=== PATIENT | female | born 1950 | race Caucasian/White ===

== ENCOUNTER 2022-08-17 22:55 | Emergency (ER) | payer MEDICARE, OTHER ==
[~2022-08-17] VITALS: Ht 147.3 cm; Wt 81.6 kg
[~2022-08-17 22:55] MED LIST: [UNRECOGNIZED DRUG - REMARK] PO
--- NOTE | 2022-08-17 23:13 | NUR ---
JOANA [id number] FROM HOME FOR C/O DIZZINESS AND NAUSEA X 1 DAY. HYPERTENSIVE AND REPORTED DID NOT TAKE HER BP MED TODAY. PT A/OX3. TOLERATING R/A WELL WITH NO RESP DISTRESS. SAFETY MEASURES IN PLACE.
[2022-08-17] MEDS ORDERED: ONDANSETRON HCL/PF 4 MG/2 ML VIAL ONE (23:51)
[2022-08-18] MEDS ORDERED: IV NS 0.9% 1,000 ML BAG IV ONE
[2022-08-18] MEDS ORDERED: ONDANSETRON HCL/PF - ER 4 MG/2 ML VIAL IV ONE
--- NOTE | 2022-08-18 00:01 | NUR ---
EMT AT PT'S BEDSIDE
[2022-08-18 00:26] LABS: BASOPHILS # (AUTO) 0.1 K/uL (0.0-0.2); BASOPHILS % (AUTO) 0.6 % (0.0-2.0); EOSINOPHILS % (AUTO) 1.4 % (0.0-6.0); HEMATOCRIT 37 % (33-45); HEMOGLOBIN 12.3 g/dL (11.5-14.8); LYMPHOCYTES # (AUTO) 1.5 K/uL (0.8-4.8); LYMPHOCYTES % (AUTO) 15.1 % (20.0-44.0); MEAN CORPUSCULAR HGB CONC 33 g/dl (31.0-36.0); MEAN CORPUSCULAR VOLUME 85 fL (82-100); MONOCYTES # (AUTO) 0.6 K/uL (0.1-1.30); MONOCYTES % (AUTO) 5.9 % (2.0-12.0); NEUTROPHILS # (AUTO) 7.8 K/uL (1.8-8.9); PLATELET COUNT (AUTO) 249 K/uL (150-450); WHITE BLOOD COUNT (AUTO) 10.2 K/uL (4.3-11.0)
[2022-08-18 00:40] LABS: CALCIUM, SERUM 8.9 mg/dL (8.5-10.1); CARBON DIOXIDE 25 mmol/L (21-32); CHLORIDE 104 mmol/L (98-107); CREATININE 0.6 mg/dL (0.6-1.3); GLUCOSE 137 mg/dL (74-106); SODIUM SERUM 138 mmol/L (136-145); UREA NITROGEN, BLOOD 20 mg/dL (7-18)
--- NOTE | 2022-08-18 02:35 | NUR ---
Patient discharged to home in stable condition. Written and verbal after care instructions given. Patient verbalizes understanding of instruction. IV removed. Catheter intact and site benign. Pressure and 4x4 applied to site. No bleeding noted.
[2022-08-18 06:32] VITALS: BP 171/99
== END 2022-08-18 06:32 | disposition home or self-care (01) ==
LOC: ER 22:58
DX: R42 Dizziness and giddiness (principal); R11.0 Nausea; I10 Essential (primary) hypertension; E78.5 Hyperlipidemia, unspecified
CPT/HCPCS: 99285; 71045; 96361; 93005 ×2; 85025; 80048; 36415 ×2; 84484 ×2; 83880; 96374; J7030; J2405

== ENCOUNTER 2023-08-07 11:06 | Inpatient (IN) | payer MEDICARE, OTHER ==
[~2023-08-07] VITALS: Ht 134.6 cm; Wt 72.6 kg
[~2023-08-07 11:06] MED LIST changes: +IBUP-1953 PO
[2023-08-07] MEDS ORDERED: MORPHINE SULFATE INJ 2 MG/ML DISP.SYRIN IV ONE ×2 (11:30→13:00)
[2023-08-07] MEDS ORDERED: MORPHINE SULFATE INJ 2 MG/ML DISP.SYRIN ONE (11:34)
[2023-08-07] MEDS ORDERED: IOHEXOL-300 100 ML VIAL IV ONE (11:47)
[2023-08-07 11:54] LABS: BASOPHILS % (AUTO) 0.3 % (0.0-2.0); EOSINOPHILS # (AUTO) 0.1 K/uL (0.0-0.7); EOSINOPHILS % (AUTO) 0.7 % (0.0-6.0); HEMATOCRIT 36 % (33-45); HEMOGLOBIN 11.8 g/dL (11.5-14.8); LYMPHOCYTES # (AUTO) 1.2 K/uL (0.8-4.8); LYMPHOCYTES % (AUTO) 14.6 % (20.0-44.0); MEAN CORPUSCULAR HEMOGLOBIN 28 PG (26.0-33.0); MEAN CORPUSCULAR HGB CONC 33 g/dl (31.0-36.0); MEAN CORPUSCULAR VOLUME 84 fL (82-100); MONOCYTES # (AUTO) 0.4 K/uL (0.1-1.30); MONOCYTES % (AUTO) 4.6 % (2.0-12.0); NEUTROPHILS # (AUTO) 6.6 K/uL (1.8-8.9); NEUTROPHILS % (AUTO) 79.8 % (43.0-81.0); PLATELET COUNT (AUTO) 222 K/uL (150-450); RED BLOOD CELL COUNT(AUTO) 4.23 MIL/uL (4.0-5.2); RED CELL DISTRIBUTION WIDTH 13.7 % (11.5-15.0); WHITE BLOOD COUNT (AUTO) 8.3 K/uL (4.3-11.0)
[2023-08-07 12:22] LABS: CALCIUM, SERUM 8.9 mg/dL (8.5-10.1); CARBON DIOXIDE 26 mmol/L (21-32); CHLORIDE 103 mmol/L (98-107); CREATININE 0.5 mg/dL (0.6-1.3); GLUCOSE 104 mg/dL (74-106); POTASSIUM 3.8 mmol/L (3.5-5.1); SODIUM SERUM 138 mmol/L (136-145); UREA NITROGEN, BLOOD 13 mg/dL (7-18)
[2023-08-07 12:27] LABS: ALANINE AMINOTRANSFERASE 19 U/L (12-78); ALBUMIN 3.1 g/dL (3.4-5.0); ALKALINE PHOSPHATASE 107 U/L (46-116); ASPARTATE AMINOTRANSFERASE 14 U/L (15-37); BILIRUBIN,DIRECT 0.1 mg/dL (0.0-0.2); BILIRUBIN,TOTAL 0.4 mg/dL (0.2-1.0); LIPASE 49 U/L (16-77); TOTAL PROTEIN, SERUM 6.9 g/dL (6.4-8.2)
[2023-08-07] MEDS ORDERED: MORPHINE SULFATE INJ 4 MG/ML DISP.SYRIN ONE (12:48)
[2023-08-07] MEDS ORDERED: ZOLP5TAB8 PO (13:10)
[2023-08-07] MEDS ORDERED: PARO20TA7 PO (13:10)
[2023-08-07] MEDS ORDERED: CALC500T13 PO (13:10)
[2023-08-07] MEDS ORDERED: ASPI-1420 PO (13:10)
[2023-08-07] MEDS ORDERED: LOSA100T31 PO (13:10)
[2023-08-07] MEDS ORDERED: DONE10TA44 PO (13:10)
[2023-08-07] MEDS ORDERED: AZEL137S7 (13:10)
[2023-08-07] MEDS ORDERED: CLON0.1T PO (13:10)
[2023-08-07] MEDS ORDERED: ROSU10TA29 PO (13:10)
[2023-08-07] MEDS ORDERED: GABA-532 PO (13:10)
[2023-08-07] MEDS ORDERED: HYDR12.55 PO (13:10)
[2023-08-07] MEDS ORDERED: ERGO500093 PO (13:10)
[2023-08-07] MEDS ORDERED: ICOS1CAP PO (13:10)
[2023-08-07 16:00] VITALS: BP 108/70; TEMP 97.9; O2SAT 94
[2023-08-07] MEDS ORDERED: HYDROCODONE/APAP 5/325MG TABLET PO PRN (16:00)
[2023-08-07] MEDS ORDERED: ZOLPIDEM TARTRATE 5 MG TABLET PO PRN (16:00)
[2023-08-07] MEDS ORDERED: ACETAMINOPHEN 325 MG TABLET PO PRN (16:00)
[2023-08-07] MEDS ORDERED: Z GUARD REMEDY 4 OZ OINT TP PRN (16:00)
[2023-08-07] MEDS ORDERED: MAG HYDROX/AL HYDROX/SIMETH 30 ML UDC PO PRN (16:00)
[2023-08-07] MEDS ORDERED: ONDANSETRON HCL/PF 4 MG/2 ML VIAL IVP PRN (16:00)
[2023-08-07] MEDS ORDERED: MORPHINE SULFATE INJ 2 MG/ML DISP.SYRIN IV PRN (16:00)
[2023-08-07] MEDS ORDERED: MAGNESIUM HYDROXIDE 30 ML UDC PO PRN (16:00)
[2023-08-07] MEDS: ENOXAPARIN SODIUM 40 MG/0.4 ML DISP.SYRIN SQ SCH (20:26)
[2023-08-07 20:36] VITALS: BP 125/67; TEMP 98.1; O2SAT 94
[2023-08-08 06:38] LABS: BASOPHILS % (AUTO) 0.2 % (0.0-2.0); EOSINOPHILS % (AUTO) 0.4 % (0.0-6.0); HEMATOCRIT 33 % (33-45); HEMOGLOBIN 11.1 g/dL (11.5-14.8); LYMPHOCYTES # (AUTO) 1.2 K/uL (0.8-4.8); MEAN CORPUSCULAR HEMOGLOBIN 28 PG (26.0-33.0); MEAN CORPUSCULAR HGB CONC 34 g/dl (31.0-36.0); MEAN CORPUSCULAR VOLUME 83 fL (82-100); MONOCYTES # (AUTO) 0.6 K/uL (0.1-1.30); MONOCYTES % (AUTO) 6.8 % (2.0-12.0); NEUTROPHILS # (AUTO) 6.7 K/uL (1.8-8.9); NEUTROPHILS % (AUTO) 78.6 % (43.0-81.0); PLATELET COUNT (AUTO) 209 K/uL (150-450); RED BLOOD CELL COUNT(AUTO) 3.93 MIL/uL (4.0-5.2); WHITE BLOOD COUNT (AUTO) 8.5 K/uL (4.3-11.0)
[2023-08-08 07:01] LABS: CALCIUM, SERUM 8.7 mg/dL (8.5-10.1); CARBON DIOXIDE 25 mmol/L (21-32); CHLORIDE 99 mmol/L (98-107); CREATININE 0.4 mg/dL (0.6-1.3); GLUCOSE 117 mg/dL (74-106); PHOSPHORUS 3.7 mg/dL (2.5-4.9); POTASSIUM 3.4 mmol/L (3.5-5.1); SODIUM SERUM 134 mmol/L (136-145); UREA NITROGEN, BLOOD 9 mg/dL (7-18)
[2023-08-08 07:21] LABS: CHOLESTEROL 185 mg/dL (<200); HDL CHOLESTEROL 77 mg/dL (40-60); LDL 83 mg/dL (0-99); THYROID STIMULATING HORMONE 2.083 uIU/mL (0.358-3.74); TRIGLYCERIDES 80 mg/dL (30-150)
[2023-08-08 07:30] VITALS: BP 136/64; TEMP 97.7; O2SAT 93
[2023-08-08] MEDS: PANTOPRAZOLE 40 MG TABLET.DR PO SCH ×2 (07:30→07:39)
[2023-08-08] MEDS ORDERED: POTASSIUM CHLORIDE 20 MEQ TAB.PRT.SR PO SCH (09:00)
[2023-08-08] MEDS ORDERED: Medication Not On Formulary EA (Icosapent Ethyl (Vascepa) 1 GM) PO SCH (09:00)
[2023-08-08] MEDS: PAROXETINE HCL 20 MG TABLET PO SCH (09:00)
[2023-08-08] MEDS: GABAPENTIN 100 MG CAPSULE PO SCH ×2 (09:00→17:01)
[2023-08-08] MEDS: ASPIRIN EC 81 MG TABLET.DR PO SCH (09:00)
[2023-08-08] MEDS: POTASSIUM CHLORIDE 20 MEQ TAB.PRT.SR PO ONE ×2 (10:30→10:48)
[2023-08-08] MEDS ORDERED: POTASSIUM CHLORIDE 20 MEQ POWDER PACKET PO SCH (12:30)
[2023-08-08 12:39] LABS: INR 1.02 (0.91-1.10); PARTIAL THROMBOPLASTIN TIME 27.6 SEC (24.3-34.3); PROTHROMBIN TIME 10.8 SECS (9.2-11.1)
[2023-08-08] MEDS: HYDROCODONE/APAP 10/325MG TABLET PO PRN ×2 (14:35→18:50)
[2023-08-08 16:00] VITALS: BP 117/86; TEMP 99; O2SAT 92
[2023-08-08] MEDS: ATORVASTATIN 40 MG TABLET PO SCH (17:01)
[2023-08-08 20:00] VITALS: BP 107/48; TEMP 98.6; O2SAT 95
[2023-08-08] MEDS: ENOXAPARIN SODIUM 40 MG/0.4 ML DISP.SYRIN SQ SCH (21:00)
[2023-08-09 05:00] VITALS: BP 130/71; TEMP 98.6; O2SAT 95
[2023-08-09] MEDS ORDERED: BUPIVACAINE 0.25% 75 MG/30 ML VIAL ONE (05:23)
[2023-08-09] MEDS ORDERED: FENTANYL PF 250MCG/5ML AMPUL ONE (05:44)
[2023-08-09] MEDS ORDERED: HYDROMORPHONE INJ 2 MG/ML DISP.SYRIN ONE (05:45)
[2023-08-09] MEDS ORDERED: FAMOTIDINE/PF INJ 20 MG/2 ML VIAL IV ONE (05:46)
[2023-08-09] MEDS ORDERED: SUCCINYLCHOLINE CHLORIDE 20 MG/ML VIAL ONE (05:46)
[2023-08-09] MEDS: PANTOPRAZOLE 40 MG TABLET.DR PO SCH (07:23)
[2023-08-09] MEDS ORDERED: MIDAZOLAM HCL 2 MG/2ML VIAL ONE (08:23)
[2023-08-09] MEDS ORDERED: ACETAMINOPHEN 325 MG TABLET PO PRN (08:30)
[2023-08-09] MEDS ORDERED: HYDROCODONE/APAP 5/325MG TABLET PO PRN (08:30)
[2023-08-09] MEDS ORDERED: SENNOSIDES 8.6 MG TABLET PO PRN ×2 (08:30)
[2023-08-09] MEDS ORDERED: BISACODYL SUPP (10 MG) 10 MG/SUPP.RECT SUPP.RECT RC PRN (08:30)
[2023-08-09 09:00] VITALS: BP 109/65; TEMP 98.1; O2SAT 100
[2023-08-09] MEDS: ASPIRIN EC 81 MG TABLET.DR PO SCH (09:00)
[2023-08-09] MEDS: PAROXETINE HCL 20 MG TABLET PO SCH (09:00)
[2023-08-09] MEDS: GABAPENTIN 100 MG CAPSULE PO SCH ×2 (09:00→17:10)
[2023-08-09] MEDS: LOSARTAN POTASSIUM 50 MG TABLET PO SCH (09:00)
[2023-08-09 11:43] LABS: HEMOGLOBIN 10.9 g/dL (11.5-14.8)
[2023-08-09] MEDS: ANCEF 1 GM/50 ML D5W IV SCH ×4 (14:18→21:54)
[2023-08-09 16:00] VITALS: BP 112/57; TEMP 98.8; O2SAT 94
[2023-08-09] MEDS: DOCUSATE SODIUM 100 MG CAPSULE PO PRN (17:10)
[2023-08-09] MEDS: ATORVASTATIN 40 MG TABLET PO SCH (17:10)
[2023-08-09 20:00] VITALS: BP 113/60; TEMP 99.7; O2SAT 97
[2023-08-09] MEDS: ENOXAPARIN SODIUM 40 MG/0.4 ML DISP.SYRIN SQ SCH (21:48)
[2023-08-10] MEDS: HYDROCODONE/APAP 10/325MG TABLET PO PRN (02:04)
[2023-08-10 08:00] VITALS: BP 121/64; TEMP 98.5; O2SAT 92
[2023-08-10 08:02] LABS: CARBON DIOXIDE 28 mmol/L (21-32); CHLORIDE 102 mmol/L (98-107); CREATININE 0.5 mg/dL (0.6-1.3); GLUCOSE 118 mg/dL (74-106); POTASSIUM 3.8 mmol/L (3.5-5.1); SODIUM SERUM 136 mmol/L (136-145); UREA NITROGEN, BLOOD 13 mg/dL (7-18)
[2023-08-10 08:06] LABS: BASOPHILS % (AUTO) 0.3 % (0.0-2.0); EOSINOPHILS % (AUTO) 0.4 % (0.0-6.0); HEMATOCRIT 29 % (33-45); HEMOGLOBIN 9.7 g/dL (11.5-14.8); LYMPHOCYTES # (AUTO) 1.4 K/uL (0.8-4.8); LYMPHOCYTES % (AUTO) 13.5 % (20.0-44.0); MEAN CORPUSCULAR HEMOGLOBIN 28 PG (26.0-33.0); MEAN CORPUSCULAR HGB CONC 33 g/dl (31.0-36.0); MEAN CORPUSCULAR VOLUME 84 fL (82-100); MONOCYTES # (AUTO) 0.9 K/uL (0.1-1.30); MONOCYTES % (AUTO) 9.1 % (2.0-12.0); NEUTROPHILS # (AUTO) 7.8 K/uL (1.8-8.9); NEUTROPHILS % (AUTO) 76.7 % (43.0-81.0); PLATELET COUNT (AUTO) 196 K/uL (150-450); RED CELL DISTRIBUTION WIDTH 14.2 % (11.5-15.0); WHITE BLOOD COUNT (AUTO) 10.1 K/uL (4.3-11.0)
[2023-08-10] MEDS: PANTOPRAZOLE 40 MG TABLET.DR PO SCH (08:28)
[2023-08-10] MEDS: LOSARTAN POTASSIUM 50 MG TABLET PO SCH (08:44)
[2023-08-10] MEDS: ASPIRIN EC 81 MG TABLET.DR PO SCH (08:44)
[2023-08-10] MEDS: PAROXETINE HCL 20 MG TABLET PO SCH (08:44)
[2023-08-10] MEDS: GABAPENTIN 100 MG CAPSULE PO SCH ×2 (08:44→17:16)
[2023-08-10 16:00] VITALS: BP 105/64; TEMP 98.2; O2SAT 92
[2023-08-10] MEDS: ATORVASTATIN 40 MG TABLET PO SCH (17:16)
[2023-08-10] MEDS: POLYETHYLENE GLYCOL 3350 17 GM POWD.PACK PO SCH (21:02)
[2023-08-10] MEDS: ENOXAPARIN SODIUM 40 MG/0.4 ML DISP.SYRIN SQ SCH (21:07)
[2023-08-10 22:14] VITALS: BP 93/69; TEMP 98.3; O2SAT 95
[2023-08-11 08:00] VITALS: BP 107/64; TEMP 97.5; O2SAT 94
[2023-08-11] MEDS: PANTOPRAZOLE 40 MG TABLET.DR PO SCH (08:02)
[2023-08-11 08:13] LABS: BASOPHILS # (AUTO) 0.1 K/uL (0.0-0.2); BASOPHILS % (AUTO) 0.5 % (0.0-2.0); EOSINOPHILS % (AUTO) 0.4 % (0.0-6.0); HEMATOCRIT 28 % (33-45); LYMPHOCYTES # (AUTO) 2.1 K/uL (0.8-4.8); LYMPHOCYTES % (AUTO) 17.9 % (20.0-44.0); MEAN CORPUSCULAR HEMOGLOBIN 27 PG (26.0-33.0); MEAN CORPUSCULAR HGB CONC 33 g/dl (31.0-36.0); MEAN CORPUSCULAR VOLUME 84 fL (82-100); MONOCYTES % (AUTO) 8.3 % (2.0-12.0); NEUTROPHILS # (AUTO) 8.4 K/uL (1.8-8.9); NEUTROPHILS % (AUTO) 72.9 % (43.0-81.0); PLATELET COUNT (AUTO) 254 K/uL (150-450); RED BLOOD CELL COUNT(AUTO) 3.29 MIL/uL (4.0-5.2); RED CELL DISTRIBUTION WIDTH 14.1 % (11.5-15.0); WHITE BLOOD COUNT (AUTO) 11.6 K/uL (4.3-11.0)
[2023-08-11 08:40] LABS: CALCIUM, SERUM 8.8 mg/dL (8.5-10.1); CARBON DIOXIDE 24 mmol/L (21-32); CHLORIDE 103 mmol/L (98-107); CREATININE 0.7 mg/dL (0.6-1.3); GLUCOSE 115 mg/dL (74-106); POTASSIUM 3.9 mmol/L (3.5-5.1); SODIUM SERUM 138 mmol/L (136-145); UREA NITROGEN, BLOOD 21 mg/dL (7-18)
[2023-08-11] MEDS: LOSARTAN POTASSIUM 50 MG TABLET PO SCH (09:00)
[2023-08-11] MEDS: GABAPENTIN 100 MG CAPSULE PO SCH ×2 (09:00→17:27)
[2023-08-11] MEDS: ASPIRIN EC 81 MG TABLET.DR PO SCH (09:01)
[2023-08-11] MEDS: PAROXETINE HCL 20 MG TABLET PO SCH (09:04)
[2023-08-11 16:00] VITALS: BP 103/56; TEMP 97.7; O2SAT 94
[2023-08-11] MEDS ORDERED: BISACODYL (5 MG) 5 MG TABLET.DR PO ONE (16:00)
[2023-08-11] MEDS ORDERED: GABAPENTIN 100 MG CAPSULE PO SCH (17:00)
[2023-08-11] MEDS: ATORVASTATIN 40 MG TABLET PO SCH (17:27)
[2023-08-11 20:00] VITALS: BP 104/58; TEMP 98.9; O2SAT 94
[2023-08-11] MEDS: POLYETHYLENE GLYCOL 3350 17 GM POWD.PACK PO SCH (21:47)
[2023-08-11] MEDS: ENOXAPARIN SODIUM 40 MG/0.4 ML DISP.SYRIN SQ SCH (21:48)
[2023-08-12 07:03] LABS: BASOPHILS % (AUTO) 0.3 % (0.0-2.0); EOSINOPHILS # (AUTO) 0.1 K/uL (0.0-0.7); EOSINOPHILS % (AUTO) 1.3 % (0.0-6.0); HEMATOCRIT 27 % (33-45); HEMOGLOBIN 8.9 g/dL (11.5-14.8); LYMPHOCYTES # (AUTO) 1.5 K/uL (0.8-4.8); LYMPHOCYTES % (AUTO) 18.1 % (20.0-44.0); MEAN CORPUSCULAR HEMOGLOBIN 28 PG (26.0-33.0); MEAN CORPUSCULAR HGB CONC 33 g/dl (31.0-36.0); MEAN CORPUSCULAR VOLUME 84 fL (82-100); MONOCYTES # (AUTO) 0.7 K/uL (0.1-1.30); MONOCYTES % (AUTO) 8.3 % (2.0-12.0); NEUTROPHILS # (AUTO) 6.1 K/uL (1.8-8.9); PLATELET COUNT (AUTO) 272 K/uL (150-450); RED CELL DISTRIBUTION WIDTH 13.9 % (11.5-15.0); WHITE BLOOD COUNT (AUTO) 8.5 K/uL (4.3-11.0)
[2023-08-12 07:29] LABS: CALCIUM, SERUM 9.1 mg/dL (8.5-10.1); CARBON DIOXIDE 26 mmol/L (21-32); CHLORIDE 104 mmol/L (98-107); CREATININE 0.5 mg/dL (0.6-1.3); GLUCOSE 120 mg/dL (74-106); SODIUM SERUM 139 mmol/L (136-145); UREA NITROGEN, BLOOD 18 mg/dL (7-18)
[2023-08-12 07:30] VITALS: BP 111/73; TEMP 97.6; O2SAT 96
[2023-08-12] MEDS: PANTOPRAZOLE 40 MG TABLET.DR PO SCH (08:46)
[2023-08-12] MEDS: PAROXETINE HCL 20 MG TABLET PO SCH (08:46)
[2023-08-12] MEDS: DOCUSATE SODIUM 100 MG CAPSULE PO PRN (08:47)
[2023-08-12] MEDS: GABAPENTIN 100 MG CAPSULE PO SCH ×2 (08:47→17:15)
[2023-08-12] MEDS: ASPIRIN EC 81 MG TABLET.DR PO SCH (08:47)
[2023-08-12] MEDS: LOSARTAN POTASSIUM 50 MG TABLET PO SCH (08:47)
[2023-08-12] MEDS ORDERED: PANT40TA49 PO (10:03)
[2023-08-12] MEDS ORDERED: ENOX40DI SQ (10:03)
[2023-08-12] MEDS ORDERED: HYDR-3980 PO (10:03)
[2023-08-12] MEDS ORDERED: BISA10SU61 RC (10:03)
[2023-08-12] MEDS ORDERED: DOCU100C36 PO (10:03)
[2023-08-12] MEDS ORDERED: POLY17PO29 PO (10:03)
[2023-08-12] MEDS ORDERED: MAGN400O6 PO (10:03)
[2023-08-12] MEDS ORDERED: ACET325T53 PO ×2 (10:03)
[2023-08-12] MEDS ORDERED: SENN-175 PO (10:03)
[2023-08-12 16:00] VITALS: BP 94/54; TEMP 98.1; O2SAT 96
[2023-08-12] MEDS: ATORVASTATIN 40 MG TABLET PO SCH (17:15)
[2023-08-12 20:00] VITALS: BP_SYST 106; BP_SYST 107; BP_DIAS 50; BP_DIAS 62; TEMP 97.7; TEMP 98.2; O2SAT 93; O2SAT 98
[2023-08-12] MEDS: POLYETHYLENE GLYCOL 3350 17 GM POWD.PACK PO SCH (22:02)
[2023-08-12] MEDS: ENOXAPARIN SODIUM 40 MG/0.4 ML DISP.SYRIN SQ SCH (22:02)
[2023-08-13 06:57] LABS: BASOPHILS % (AUTO) 0.5 % (0.0-2.0); EOSINOPHILS # (AUTO) 0.1 K/uL (0.0-0.7); EOSINOPHILS % (AUTO) 1.7 % (0.0-6.0); HEMATOCRIT 28 % (33-45); LYMPHOCYTES # (AUTO) 1.4 K/uL (0.8-4.8); LYMPHOCYTES % (AUTO) 18.3 % (20.0-44.0); MEAN CORPUSCULAR HEMOGLOBIN 28 PG (26.0-33.0); MEAN CORPUSCULAR HGB CONC 33 g/dl (31.0-36.0); MEAN CORPUSCULAR VOLUME 86 fL (82-100); MONOCYTES # (AUTO) 0.6 K/uL (0.1-1.30); MONOCYTES % (AUTO) 7.4 % (2.0-12.0); NEUTROPHILS # (AUTO) 5.4 K/uL (1.8-8.9); NEUTROPHILS % (AUTO) 72.1 % (43.0-81.0); PLATELET COUNT (AUTO) 296 K/uL (150-450); RED BLOOD CELL COUNT(AUTO) 3.22 MIL/uL (4.0-5.2); WHITE BLOOD COUNT (AUTO) 7.6 K/uL (4.3-11.0)
[2023-08-13 07:30] VITALS: BP_SYST 104; BP_SYST 109; BP_DIAS 59; BP_DIAS 66; TEMP 98.2; TEMP 98.4; O2SAT 94; O2SAT 98
[2023-08-13 08:21] VITALS: BP 138/70
[2023-08-13] MEDS: ASPIRIN EC 81 MG TABLET.DR PO SCH (08:21)
[2023-08-13] MEDS: LOSARTAN POTASSIUM 50 MG TABLET PO SCH (08:21)
[2023-08-13] MEDS: PAROXETINE HCL 20 MG TABLET PO SCH (08:21)
[2023-08-13] MEDS: GABAPENTIN 100 MG CAPSULE PO SCH (08:21)
[2023-08-13] MEDS: PANTOPRAZOLE 40 MG TABLET.DR PO SCH (08:23)
== END 2023-08-13 11:45 | DRG 481 ==
LOC: ER 11:16 → TRANSITION 14:04 → MED 15:12
PROVIDERS: ATTEND Nurse Practitioner Acute Care
PROC: 0QS706Z Reposition Left Upper Femur with Intramedullary Internal Fixation Device, Open Approach (ICD-10-PCS; principal; 2023-08-09)
DX: S72.142A Displaced intertrochanteric fracture of left femur, initial encounter for closed fracture (principal); E44.1 Mild protein-calorie malnutrition; Z68.41 Body mass index [BMI] 40.0-44.9, adult; E78.5 Hyperlipidemia, unspecified; I10 Essential (primary) hypertension; M47.812 Spondylosis without myelopathy or radiculopathy, cervical region; E87.6 Hypokalemia; E04.1 Nontoxic single thyroid nodule; E88.09 Other disorders of plasma-protein metabolism, not elsewhere classified; Z20.822 Contact with and (suspected) exposure to COVID-19; S09.90XA Unspecified injury of head, initial encounter; V03.10XA Pedestrian on foot injured in collision with car, pick-up truck or van in traffic accident, initial encounter; Y92.410 Unspecified street and highway as the place of occurrence of the external cause; F03.90 Unspecified dementia, unspecified severity, without behavioral disturbance, psychotic disturbance, mood disturbance, and anxiety; M50.30 Other cervical disc degeneration, unspecified cervical region
CPT/HCPCS: 36415; 70450-TC; 71260-TC; 72125-TC; 73020; 73502; 73700-TC; 80048-TC; 80061-TC; 80076-TC; 82962-TC; 83690-TC; 83735-TC; 84100-TC; 84443-TC; 85025-TC; 85027-TC; 85730-TC; 86850-TC; 93307-TC; 97110-TC; 97112-TC; 97116-TC; 97530-TC; A4223; A6209; A6253; A6403; C1713; G0378; J0330; J0690; J1170; J1650; J2250; J2270; J2405; J2704; J2765; J3010; J3490; J7030; J7050; J7060; Q9967